=== PATIENT | male | born 1985 | race Caucasian/White ===

== ENCOUNTER 2016-09-30 19:40 | Emergency (ER) | payer OTHER ==
[~2016-09-30] VITALS: Ht 170.2 cm; Wt 74.5 kg
[2016-09-30 19:43] VITALS: Ht 170.2 cm; Wt 74.5 kg
[2016-09-30] MEDS ORDERED: morphine 4 MG/ML VIAL IV STA ×2 (19:55→21:30)
[2016-09-30] MEDS ORDERED: SOD CHLORIDE 0.9% 1,000 ML IV STA (19:55)
[2016-09-30] MEDS ORDERED: ONDANSETRON 4 MG INJ IV STA (19:55)
[2016-09-30] MEDS ORDERED: FAMOTIDINE 20 MG INJ IV STA (19:55)
[2016-09-30] MEDS ORDERED: LIDOCAINE/MYLANTA 40 ML BTL PO STA (19:55)
[2016-09-30] MEDS ORDERED: EMTR1TAB11 PO (20:01)
--- NOTE | 2016-09-30 20:02 | ERD ---
ER Documentation Chief Complaint Date/Time DATE: 09/30/16 TIME: 19:59 Chief Complaint INTERMITTENT EPIGASTRIC PAIN X X5DAY N/V worse today HPI 31-year-old male presents here in emergency department for complaints of epigastric pain for 4 days with nausea and vomiting, got worse today. Patient described the pain as sharp pain, 6/10 scale, accompanied with vomiting. Worse upon lying down. Patient denies any fever or chills. Patient denies any diarrhea or constipation. Patient did not take any medications to help with symptoms. ROS All systems reviewed and are negative except as per history of present illness. Medications Home Meds Reported Medications Emtricitabine-Tenofovir* (Truvada*) 200-300 Mg Tablet, 1 TAB PO DAILY for 7 Days , TAB 09/30/16 Allergies Allergies: Coded Allergies: No Known Allergy (Unverified , 09/30/16) PMhx/Soc Medical and Surgical Hx: pt denies Surgical Hx Hx Miscellaneous Medical Probl: Yes (HIV) FmHx Family History: No coronary disease, No diabetes, No other Physical Exam Vitals Vital Signs Date Time Temp Pulse Resp B/P Pulse Ox O2 Delivery O2 Flow Rate FiO2 09/30/16 19:43 98.0 98 18 168/94 98 Physical Exam GENERAL: The patient is well developed and appropriate for usual state of health, in no apparent distress. CHEST: Clear to auscultation bilaterally. There are no rales, wheezes or rhonchi. HEART: Regular rate and rhythm. No murmurs, clicks, rubs or gallops. No S3 or S4. ABDOMEN: Soft, nontender and nondistended. Good bowel sounds. No rebound or guarding. No gross peritonitis. No gross organomegaly or masses. No Dejesus sign or McBurney point tenderness. BACK: No midline or flank tenderness. EXTREMITIES: Equal pulses bilaterally. There is no peripheral clubbing, cyanosis or edema. No focal swelling or erythema. Full range of motion. Grossly neurovascularly intact. NEURO: Alert and oriented. Cranial nerves 2-12 intact. Motor strength in all 4 extremities with 5/5 strength. Sensation grossly intact. Normal speech and gait. SKIN: There is no apparent rash or petechia. The skin is warm and dry. HEMATOLOGIC AND LYMPHATIC: There is no evidence of excessive bruising or lymphedema. No gross cervical, axillary, or inguinal lymphadenopathy. Result Diagram: 09/30/16201909/30/162019 Results 24 hrs Laboratory Tests Test 09/30/16 20:20 White Blood Count 10.310^3/ul Red Blood Count 4.8610^6/ul Hemoglobin 14.8g/dl Hematocrit 44.3% Mean Corpuscular Volume 91.2fl Mean Corpuscular Hemoglobin 30.5pg Mean Corpuscular Hemoglobin Concent 33.4g/dl Red Cell Distribution Width 12.6% Platelet Count 88075^3/UL Mean Platelet Volume 9.2fl Neutrophils % 52.9% Lymphocytes % 33.7% Monocytes % 4.6% Eosinophils % 7.5% Basophils % 0.8% Nucleated Red Blood Cells % 0.0/100WBC Neutrophils # 5.410^3/ul Lymphocytes # 3.510^3/ul Monocytes # 0.510^3/ul Eosinophils # 0.810^3/ul Basophils # 0.110^3/ul Nucleated Red Blood Cells # 0.010^3/ul Sodium Level 142mmol/L Potassium Level 3.7mmol/L Chloride Level 104mmol/L Carbon Dioxide Level 29mmol/L Anion Gap 13 Blood Urea Nitrogen 17mg/dl Creatinine 1.51mg/dl Glucose Level 120mg/dl Calcium Level 9.0mg/dl Total Bilirubin 0.1mg/dl Direct Bilirubin 0.00mg/dl Indirect Bilirubin 0.1mg/dl Aspartate Amino Transf (AST/SGOT) 147IU/L Alanine Aminotransferase (ALT/SGPT) 97IU/L Alkaline Phosphatase 122IU/L Total Protein 8.6g/dl Albumin 5.0g/dl Globulin 3.60g/dl Albumin/Globulin Ratio 1.38 Lipase 119U/L Current Medications Medications (Trade) Dose Ordered Sig/Meghan Route PRN Reason Start Time Stop Time Status Last Admin Dose Admin Sodium Chloride (NS) 1,000 ml @ 1,000 mls/hr Q1H STAT IV 09/30/16 19:55 09/30/16 20:54 DC 09/30/16 20:22 Morphine Sulfate (morphine) 4 mg ONCE STAT IV 09/30/16 19:55 09/30/16 19:57 DC 09/30/16 20:22 Ondansetron HCl (Zofran Inj) 4 mg ONCE STAT IV 7/8/17 19:55 09/30/16 19:57 DC 09/30/16 20:22 Famotidine (Pepcid Iv) 20 mg ONCE STAT IV 09/30/16 19:55 09/30/16 19:57 DC 09/30/16 20:22 Miscellaneous Medication (Gi Cocktail (2)) 40 ml ONCE STAT PO 09/30/16 19:55 09/30/16 19:57 DC 09/30/16 20:22 Morphine Sulfate (morphine) 4 mg ONCE STAT IV 09/30/16 21:30 09/30/16 21:31 DC 09/30/16 21:37 Patient was given medication for pain here in emergency department, after treatment, patient verbalized feeling much better. Patient's pain is improved.Patient was given Zofran here in the emergency department. After treatment, patient was able to tolerate po fluids here in the emergency department without any vomiting. There is no signs and symptoms of dehydration. Pepcid injection and GI cocktail of the was also given here in emergency department. PROCEDURE: US Abdomen. CLINICAL INDICATION: abdominal pain TECHNIQUE: Multiple real-time images were acquired of the patient's right upper quadrant abdomen and retroperitoneum utilizing a high resolution transducer. COMPARISON: None FINDINGS: The liver demonstrates normal echogenicity. The liver is normal in size and no focal solid lesions are seen. The liver measures 15.9 cm in length. The portal vein is patent with normal direction of flow. No intrahepatic biliary dilatation is seen. The gallbladder is completely filled with multiple calcified stones. There is no pericholecystic fluid or gallbladder wall thickening. The common bile duct measures 5 mm in maximal dimension. The visualized portions of the pancreas are unremarkable. The tail of the pancreas is not seen. No free fluid is identified. The right kidney is normal in size, and demonstrate normal echogenicity and cortical thickness. The right kidney measures 9.7 cm in long dimension. There is no evidence of hydronephrosis. There are no kidney stones. RPTAT: AA IMPRESSION: Gallbladder completely filled with multiple calcified stones. No evidence of gallbladder wall thickening or pericholecystic fluid. .Marcell Khalil MD, MD Date Time Electronically viewed and signed by .Marcell Khalil MD, on 09/30/2016 20: 17 .S/ CC: MIR MURILLO NP Procedures/MDM Medical Decision Making: Patient's symptoms most like it consistent with biliary colic. Patient does not begin have gastritis also. There is low suspicion for abdominal emergencies at this time. Patients abdominal exam is normal at this time. Patients radiology exam does not show any abdominal emergencies at this time. There is low suspicion for appendicitis, cholecystitis , abdominal aortic aneurysms or peritonitis at this time. There is low suspicion for sepsis. Patient appears well and is hemodynamically stable. Disposition: Home. Condition: Stable Prescription [place], Zofran, omeprazole, Mylanta Instructions: Patient is advised to take medications as prescribed. Patient is advised to rest, increase fluid intake and do brat diet for next 1-2 days and progress as tolerated. Patient is advised that if symptoms are worse, severe abdominal pain, uncontrolled vomiting, high fever, severe flank pain, worst signs and symptoms, to return to the emergency department immediately. Otherwise, patient can follow up with primary care doctor in 5-7 days. Advised to see general surgeon for possible removal of the gallbladder stones, possible EGD with primary care doctor for further evaluation to rule out ulcers. Departure Diagnosis: Primary Impression: Biliary colic Additional Impression: Epigastric abdominal pain Condition: Stable Patient Instructions: Biliary Colic With Gallstone (Confirmed), Epigastric Pain (Uncertain Cause) Additional Instructions: Patient is advised to take medications as prescribed. Patient is advised to rest, increase fluid intake and do brat diet for next 1-2 days and progress as tolerated. Patient is advised that if symptoms are worse, severe abdominal pain , uncontrolled vomiting, high fever, severe flank pain, worst signs and symptoms , to return to the emergency department immediately. Otherwise, patient can follow up with primary care doctor in 5-7 days. Advised to see general surgeon for possible removal of the gallbladder stones, possible EGD with primary care doctor for further evaluation to rule out ulcers. MIR MURILLO NP Sep 30, 2016 20:02
--- NOTE | 2016-09-30 20:17 | RADRPT ---
PROCEDURE: US Abdomen. CLINICAL INDICATION: abdominal pain TECHNIQUE: Multiple real-time images were acquired of the patient's right upper quadrant abdomen a nd retroperitoneum utilizing a high resolution transducer. COMPARISON: None FINDINGS: The liver demonstrates normal echogenicity. The liver is normal in size and no focal solid lesions are seen. The liver measures 15.9 cm in length. The portal vein is patent with normal direction of f low. No intrahepatic biliary dilatation is seen. The gallbladder is completely filled with multiple calcified stones. There is no pericholecystic flu id or gallbladder wall thickening. The common bile duct measures 5 mm in maximal dimension. The visualized portions of the pancreas are unremarkable. The tail of the pancreas is not seen. No free fluid is identified. The right kidney is normal in size, and demonstrate normal echogenicity and cortical thickness. The right kidney measures 9.7 cm in long dimension. There is no evidence of hydronephrosis. There are no kidney stones. RPTAT: AA IMPRESSION: Gallbladder completely filled with multiple calcified stones. No evidence of gallbladder wall thickening or pericholecystic fluid. .Marcell Khalil MD, MD Date Time Electronically viewed and signed by .Marcell Khalil MD, on 09/30/2016 20:17 .S/
[2016-09-30 20:35] LABS: ADD SCAN DIFF NO
[2016-09-30 20:38] LABS: BASOPHIL # 0.1 10^3/ul (0.0-0.1); BASOPHILS % 0.8 % (0.0-2.0); EOSINOPHILS # 0.8 10^3/ul (0.0-0.5); EOSINOPHILS % 7.5 % (0.0-7.0); HEMATOCRIT 44.3 % (42.0-52.0); HEMOGLOBIN 14.8 g/dl (14.0-18.0); LYMPHOCYTES # 3.5 10^3/ul (0.8-2.9); LYMPHOCYTES % 33.7 % (15.0-51.0); MEAN CORPUSCULAR HEMOGLOBIN 30.5 pg (29.0-33.0); MEAN CORPUSCULAR HGB CONC 33.4 g/dl (32.0-37.0); MEAN CORPUSCULAR VOLUME 91.2 fl (82.0-101.0); MEAN PLATELET VOLUME 9.2 fl (7.4-10.4); MONOCYTE # 0.5 10^3/ul (0.3-0.9); MONOCYTES % 4.6 % (0.0-11.0); NEUTROPHIL # 5.4 10^3/ul (1.6-7.5); NEUTROPHILS % 52.9 % (39.0-77.0); PLATELET COUNT 236 10^3/UL (140-415); RED BLOOD COUNT 4.86 10^6/ul (4.70-6.10); RED CELL DISTRIBUTION WIDTH 12.6 % (11.5-14.5); WHITE BLOOD COUNT 10.3 10^3/ul (4.8-10.8)
[2016-09-30 21:00] LABS: ALBUMIN/GLOBULIN RATIO 1.38; BILIRUBIN,INDIRECT 0.1 mg/dl (0-1.1); BILIRUBIN,TOTAL 0.1 mg/dl (0.2-1.3); CREATININE 1.51 mg/dl (0.61-1.24); POTASSIUM 3.7 mmol/L (3.5-5.1); TOTAL PROTEIN 8.6 g/dl (6.1-8.1)
[2016-09-30] MEDS ORDERED: ONDA4TAB14 PO (22:15)
[2016-09-30] MEDS ORDERED: MAG-19 PO (22:15)
[2016-09-30] MEDS ORDERED: OMEP20CA16 PO (22:15)
[2016-09-30] MEDS ORDERED: HYDR-902 PO (22:15)
[2016-09-30 22:19] LABS: URINE BLOOD (Dip) POC Negative (NEGATIVE)
== END 2016-09-30 22:40 | disposition home or self-care (01) ==
LOC: FTE 19:40
DX: K80.50 Calculus of bile duct without cholangitis or cholecystitis without obstruction (principal); R11.2 Nausea with vomiting, unspecified
CPT/HCPCS: 36415; 76705; 80053; 81003; 83690; 85025; 96374; 96375; 96376; 99285; J2270; J2405; J7030